=== PATIENT | female | born 1995 | race Caucasian/White ===

== ENCOUNTER 2017-08-16 15:48 | Emergency (ER) | payer OTHER ==
[2017-08-16 16:09] VITALS: BP 120/75
[2017-08-16] MEDS ORDERED: Lidocaine 2% PF * 5 ML VIAL INJ ONE (16:48)
--- NOTE | 2017-08-16 16:56 | RAD ---
Indication: Distal phalanx level RIGHT third finger pain with subungual hematoma following crush injury. Comparison: No relevant prior exams available on the [facility] [place] PACS for comparison. Technique: 3 views RIGHT third finger. REPORT AND IMPRESSION: Negative for fracture or articular malalignment. Mild distal soft tissue swelling. Negative for subcutaneous emphysema.
--- NOTE | 2017-08-16 17:24 | UC ---
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 BRUISING UNDER NAIL LAST TETANUS 2013 - History Of Current Complaint Chief Complaint: UCSkin Stated Complaint: RIGHT MIDDLE FINGER INJURY Time Seen by Provider: 08/16/17 16:01 Hx Obtained From: Patient Hx Last Menstrual Period: 07/19/17 Onset/Duration: Sudden Onset, Lasting Hours Severity Initially: Mild Severity Currently: Mild Character Of Pain: Dull, Aching Aggravating Factor(s): Movement Alleviating Factor(s): Nothing Associated Signs And Symptoms: Positive: Negative Related History: Dominant Hand Right - Allergies/Home Medications Allergies/Adverse Reactions: Allergies Allergy/AdvReac Type Severity Reaction Status Date / Time No Known Allergies Allergy Verified 08/16/17 16:05 Home Medications: Home Medications Control Pill 1 tab PO DAILY 08/16/17 [History Confirmed 08/16/17] PMH/Surg Hx/FS Hx/Imm Hx Previously Healthy: Yes - Surgical History Surgical History: None - Family History Known Family History: Negative: Blood Disorder - Social History Occupation: Student Lives: With Family Alcohol Use: Occasionally Substance Use Type: None Smoking Status (MU): Never Smoked Tobacco Review of Systems Constitutional: Negative Skin: Bruising - RIGHT THIRD FINGER SUBUNGUAL HEMATOMA Eyes: Negative ENT: Negative Respiratory: Negative Cardiovascular: Negative Gastrointestinal: Negative Genitourinary: Negative Motor: Negative Neurovascular: Negative Musculoskeletal: Negative Neurological: Negative Psychological: Negative Is Patient Immunocompromised?: No All Other Systems Reviewed And Are Negative: Yes Physical Exam Triage Information Reviewed: Yes Appearance: Well-Appearing, No Pain Distress, Well-Nourished Vital Signs: Initial Vital Signs Temp 99.2 F 08/16/17 16:06 Pulse 57 08/16/17 16:06 Resp 16 08/16/17 16:06 BP 120/75 08/16/17 16:06 Pulse Ox 100 08/16/17 16:06 Vital Signs Reviewed: Yes Eye Exam: Normal ENT Exam: Normal ENT: Positive: Normal ENT inspection, TMs normal Dental Exam: Normal Neck exam: Normal Neck: Positive: Supple, Nontender Respiratory Exam: Normal Respiratory: Positive: Chest non-tender, Lungs clear, Normal breath sounds, No respiratory distress, No accessory muscle use Cardiovascular Exam: Normal Cardiovascular: Positive: RRR, No Murmur, Pulses Normal Abdominal Exam: Normal Musculoskeletal Exam: Normal Musculoskeletal: Positive: Strength Intact Neurological Exam: Normal Psychological Exam: Normal Skin Exam: Normal Procedures - Procedure Summary Procedure Summary: RIGHT THIRD FINGER SUBUNGUAL HEMATOMA RELEASE USING DIGITAL BLOCK (2% LIDO PLAIN ) AND ELECTROCAUTERY. TWO CAUTERY PORTS WEREW PLACED IN MEDIAL AND LATERAL NAIL AND HEMATOMA WAS EXPRESSED. PATIENT TOLERATED PROCEDURE WELL. Hand/Wrist Course/Dx - Differential Dx/Diagnosis Differential Diagnosis/HQI/PQRI: Felon, Fracture, Sprain, Strain, Subungual Hematoma Provider Diagnoses: RIGHT THIRD FINGER SUBUNGUAL HEMATOMA WITH RELEASE Discharge - Discharge Plan Condition: Stable Disposition: HOME Patient Education Materials: Subungual Hematoma (ED) Referrals: Non Staff,Doctor [Primary Care Provider] -
== END 2017-08-16 17:24 | disposition home or self-care (01) ==
LOC: UCCORT 15:48
DX: S60.031A Contusion of right middle finger without damage to nail, initial encounter (principal); W23.0XXA Caught, crushed, jammed, or pinched between moving objects, initial encounter; Y92.9 Unspecified place or not applicable
CPT/HCPCS: 11740; 73140; 99202; G0463